=== PATIENT | female | born 1980 | race Caucasian/White ===

== ENCOUNTER 2018-04-14 04:13 | Inpatient (IN) | payer MEDICAID ==
[~2018-04-14] VITALS: Ht 162.6 cm; Wt 91.6 kg
[2018-04-14] MEDS ORDERED: OXYTOCIN 10 UNIT/ML VIAL IM ONE (05:45)
[2018-04-14 05:59] VITALS: BP_SYST 127
[2018-04-14] MEDS ORDERED: METHYLERGONOVINE MALEATE 0.2 MG TABLET PO PRN (06:00)
[2018-04-14] MEDS ORDERED: RHO(D) IMMUNE GLOBULIN/MALTOSE 1500 UNITS/1.3 ML (WINHRO) IM PRN (06:00)
[2018-04-14] MEDS ORDERED: WITCH HAZEL LEAF 1 MED.PAD MED.PAD TP PRN (06:00)
[2018-04-14] MEDS ORDERED: OXYCODONE/ACETAMINOPHEN 5-325 TABLET PO PRN ×2 (06:00)
[2018-04-14] MEDS ORDERED: DERMOPLAST SPRAY TP PRN (06:00)
[2018-04-14] MEDS ORDERED: LANOLIN 7 GM OINT. TP PRN (06:00)
[2018-04-14] MEDS ORDERED: HYDROCORTISONE 0.5%, 28.35 GM TOPICAL CREAM TP PRN (06:00)
[2018-04-14] MEDS ORDERED: HYDROcodone/ACETAMIN 5-325 MG TAB (NORCO/ VICODIN) PO PRN (06:00)
[2018-04-14] MEDS ORDERED: LIDOCAINE PF 1% 30ML(POUR BTL) INJ ONE (07:20)
[2018-04-14 09:01] LABS: BARBITURATE, URINE NEGATIVE (NEG <=200); BENZODIAZEPINE, URINE NEGATIVE (NEG <=150); CANNABINOID, URINE NEGATIVE (NEG <=50); COCAINE, URINE NEGATIVE (NEG <=150); METHAMPHETAMINES SCREEN,URINE NEGATIVE (NEG <=500); OPIATE, URINE NEGATIVE (NEG <=100); PHENCYCLIDINE SCREEN,URINE NEGATIVE (NEG <=25); UR TRICYCLIC ANTIDEPRESSANTS NEGATIVE (NEG <=300); URINE AMPHETAMINE NEGATIVE (NEG <=500); URINE METHADONE NEGATIVE (NEG <=200); URINE OXYCODONE SCREEN NEGATIVE (NEG <=100); URINE PROPOXYPHENE SCREEN NEGATIVE (NEG <=300)
[2018-04-14] MEDS ORDERED: METHYLERGONOVINE MALEATE 0.2 MG/ML AMP IM ONE (09:45)
[2018-04-14 11:06] LABS: BASOPHILS # (AUTO) 0.1 K/uL (0.0-0.2); BASOPHILS % (AUTO) 0.3 % (0.0-2.0); EOSINOPHILS # (AUTO) 0.1 K/uL (0.0-0.4); EOSINOPHILS % (AUTO) 0.6 % (0.0-4.0); HEMATOCRIT 31.3 % (36-48); HEMOGLOBIN 9.8 g/dL (12.0-16.0); LYMPHOCYTES # (AUTO) 1.8 K/uL (1.0-5.5); LYMPHOCYTES % (AUTO) 10.3 % (20.5-51.5); MEAN CORPUSCULAR HEMOGLOBIN 26 pg (27-31); MEAN CORPUSCULAR HGB CONC 31 % (32-36); MEAN CORPUSCULAR VOLUME 82 fL (79.0-98.0); MONOCYTES # (AUTO) 0.9 K/uL (0.0-1.0); MONOCYTES % (AUTO) 5.4 % (1.7-9.3); NEUTROPHILS # (AUTO) 14.5 K/uL (1.8-7.7); NEUTROPHILS % (AUTO) 83.4 % (40.0-70.0); PLATELET COUNT (AUTO) 302 K/uL (130-430); WHITE BLOOD COUNT (AUTO) 17.4 K/uL (4.8-10.8)
[2018-04-14] MEDS: IBUPROFEN 600 MG TABLET PO SCH ×2 (12:00→12:47)
[2018-04-14] MEDS: DOCUSATE SODIUM 100 MG CAPSULE PO PRN (12:46)
[2018-04-15] MEDS: IBUPROFEN 600 MG TABLET PO SCH ×3 (00:15→23:40)
[2018-04-15] MEDS: DOCUSATE SODIUM 100 MG CAPSULE PO PRN ×2 (00:17→23:45)
[2018-04-15 10:14] LABS: RUBELLA AB, IgG 4.02 index (Immune >0.99)
[2018-04-15 14:08] LABS: HEPATITIS B SURFACE AG Negative (Negative)
[2018-04-16] MEDS: IBUPROFEN 600 MG TABLET PO SCH (12:31)
== END 2018-04-16 17:25 | disposition home or self-care (01) | DRG 560 ==
LOC: SPU 04:13
PROVIDERS: ADMIT Specialist; ATTEND Specialist
PROC: 10E0XZZ Delivery of Products of Conception, External Approach (ICD-10-PCS; principal; 2018-04-14)
PROC: 0KQM0ZZ Repair Perineum Muscle, Open Approach (ICD-10-PCS; 2018-04-14)
DX: O70.1 Second degree perineal laceration during delivery (principal); D25.9 Leiomyoma of uterus, unspecified; Z37.0 Single live birth; Z3A.39 39 weeks gestation of pregnancy; O90.89 Other complications of the puerperium, not elsewhere classified
CPT/HCPCS: 36415; 76856-TC; 80307; 85025; 86592; 86762; 86886; 86900; 86901; 87340; 87536; J2001; J2590